=== PATIENT | male | born 1985 | race Caucasian/White ===

== ENCOUNTER 2022-07-31 02:31 | Emergency (ER) | payer SELFPAY | END 2022-07-31 02:50 | disposition home or self-care (01) | LOC: MADERS 02:31 | DX: Z48.01 Encounter for change or removal of surgical wound dressing (principal); I10 Essential (primary) hypertension | CPT/HCPCS: 99283 ==

== ENCOUNTER 2025-01-16 15:53 | Emergency (ER) | payer OTHER ==
[2025-01-16] MEDS ORDERED: Acetaminophen 500 MG TAB ONE (17:05)
== END 2025-01-16 18:44 | disposition home or self-care (01) ==
LOC: MADERS 15:53
DX: T84.89XA Other specified complication of internal orthopedic prosthetic devices, implants and grafts, initial encounter (principal); M63.8 Disorders of muscle in diseases classified elsewhere; M62.00 Separation of muscle (nontraumatic), unspecified site; I10 Essential (primary) hypertension; Z87.891 Personal history of nicotine dependence; S60.042A Contusion of left ring finger without damage to nail, initial encounter; S60.052A Contusion of left little finger without damage to nail, initial encounter; X50.0XXA Overexertion from strenuous movement or load, initial encounter; Y93.89 Activity, other specified
CPT/HCPCS: 99283